=== PATIENT | male | born 1960 | race Caucasian/White ===

== ENCOUNTER 2018-03-08 08:00 | Outpatient (CLI) | payer MEDICAID ==
[2018-03-08 18:22] LABS: CHOL/HDL RATIO 4.4 (<5.0); CHOLESTEROL 221 mg/dL; HDL CHOLESTEROL 50 mg/dL; LDL CHOLESTEROL,CALCULATED 144 mg/dL; LDL/HDL RATIO 2.9 (<3.6); VLDL CHOLESTEROL 27 mg/dL
[2018-03-08 18:47] LABS: HB2 TOTAL 14.3 g/dL; HEMOGLOBIN A1C 0.4 g/dL; HEMOGLOBIN A1C % 4.7 % (4.6-6.2)
== END 2018-03-08 08:01 | disposition home or self-care (01) ==
LOC: LAB.S 08:00
PROVIDERS: ATTEND Nurse Practitioner Family
DX: Z13.220 Encounter for screening for lipoid disorders (principal); Z12.11 Encounter for screening for malignant neoplasm of colon; Z13.1 Encounter for screening for diabetes mellitus; Z12.5 Encounter for screening for malignant neoplasm of prostate
CPT/HCPCS: 36415; 80061; 83036; 83721; 84153

== ENCOUNTER 2018-03-08 09:00 | Outpatient (CLI) | payer MEDICAID | END 2018-03-08 09:01 | disposition home or self-care (01) | LOC: LAB.R 09:00 | PROVIDERS: ATTEND Nurse Practitioner Family | DX: Z12.11 Encounter for screening for malignant neoplasm of colon (principal) | CPT/HCPCS: 82270 ==